=== PATIENT | female | born 1990 | race Caucasian/White ===

== ENCOUNTER → 2021-07-03 | Outpatient (CLI) | payer OTHER | LOC: COL.RAD 08:33 | DX: M25.521 Pain in right elbow (principal) | CPT/HCPCS: A9585; Q9967 ==

== ENCOUNTER 2022-12-31 09:45 | Outpatient (RCR) | payer OTHER | END 2023-01-16 | disposition home or self-care (01) | LOC: MKS.ESL.PT | DX: M54.2 Cervicalgia (principal) ==

== ENCOUNTER 2023-01-21 08:17 | Outpatient (RCR) | payer OTHER | END 2023-02-15 | disposition home or self-care (01) | LOC: MKS.ESL.PT | DX: M54.2 Cervicalgia (principal) ==

== ENCOUNTER → 2024-01-14 | Outpatient (CLI) | payer OTHER ==
[~2024-01-14] MED LIST: Gadoterate 15 ML VIAL IV ONE
== END ==
LOC: COL.RAD 09:50
DX: R20.2 Paresthesia of skin (principal)
CPT/HCPCS: A9575